=== PATIENT | female | born 1965 | race Caucasian/White ===

== ENCOUNTER 2018-05-15 14:45 | Emergency (ER) | payer OTHER ==
[~2018-05-15] VITALS: Ht 157.5 cm; Wt 45.4 kg
[~2018-05-15 14:45] MED LIST: BENA40TA8 PO; FIORINAL; HYDR-4354 PO; METHIMAZOLE; PROP80TA4 PO
[2018-05-15] MEDS ORDERED: HYDR4TAB4 PO (14:54)
[2018-05-15 15:45] LABS: BASOPHILS % (AUTO) 0.7 % (0.0-2.0); EOSINOPHILS # (AUTO) 0.1 K/uL (0.0-0.7); EOSINOPHILS % (AUTO) 1.4 % (0.0-7.0); HEMATOCRIT 46.7 % (31.2-41.9); HEMOGLOBIN 15.9 g/dL (10.9-14.3); LYMPHOCYTES # (AUTO) 1.6 K/uL (20.0-40.0); MEAN CORPUSCULAR HEMOGLOBIN 29.9 uug (24.7-32.8); MEAN CORPUSCULAR HGB CONC 34 g/dL (32.3-35.6); MEAN CORPUSCULAR VOLUME 88.1 fL (75.5-95.3); MONOCYTES # (AUTO) 0.6 K/uL (2.0-10.0); MONOCYTES % (AUTO) 9.4 % (0.0-11.0); NEUTROPHILS # (AUTO) 4.4 K/uL (1.8-8.9); NEUTROPHILS % (AUTO) 64.5 % (38.5-71.5); PLATELET COUNT (AUTO) 213 K/uL (179-408); WHITE BLOOD COUNT (AUTO) 6.9 K/uL (3.8-11.8)
[2018-05-15 16:04] LABS: BILIRUBIN,DIRECT 0.1 mg/dL (0.0-0.2); BILIRUBIN,TOTAL 0.4 mg/dL (0.2-1.0); CREATININE 0.7 mg/dL (0.6-1.3); POTASSIUM 3.3 mmol/L (3.5-5.1); TOTAL PROTEIN, SERUM 7.3 g/dL (6.4-8.2)
[2018-05-15 16:12] VITALS: BP 141/89
--- NOTE | 2018-05-15 16:12 | NUR ---
Patient discharged to home in stable conditon. Written and verbal after care instructions given. Patient verbalizes understanding of instructions.PT WALKS IN STEADY GAIT. PT WITH FAMILY MEMBERS
== END 2018-05-15 16:14 | disposition home or self-care (01) ==
LOC: ER 14:45
DX: M54.12 Radiculopathy, cervical region (principal); F17.200 Nicotine dependence, unspecified, uncomplicated; Z88.8 Allergy status to other drugs, medicaments and biological substances
CPT/HCPCS: 36415; 70030-TC; 70450; 71045; 85025; 85730; 93005; A4663

== ENCOUNTER 2018-07-27 19:02 | Emergency (ER) | payer BC, OTHER, MEDICAID ==
[~2018-07-27] VITALS: Ht 157.5 cm; Wt 44.5 kg
[~2018-07-27 19:02] MED LIST changes: -FIORINAL; -HYDR-4354 PO; +HYDR4TAB4 PO
[2018-07-27] MEDS ORDERED: ALBUTEROL SULFATE 2.5 MG/3 ML NEBU ONE (19:43)
[2018-07-27] MEDS ORDERED: BENZONATATE 100 MG CAPSULE ONE (19:44)
[2018-07-27] MEDS ORDERED: BENZONATATE 100 MG CAPSULE PO ONE (19:45)
[2018-07-27] MEDS ORDERED: MORPHINE SULFATE 4 MG/1 ML DISP.SYRIN IM ONE (19:45)
[2018-07-27] MEDS ORDERED: ONDANSETRON 4 MG/2 ML VIAL IM ONE (19:45)
[2018-07-27] MEDS ORDERED: ALBUTEROL SULFATE 2.5 MG/3 ML NEBU NEB ONE (19:45)
[2018-07-27] MEDS ORDERED: LIDOCAINE HCL 2% 20 ML VIAL ONE (19:55)
[2018-07-27] MEDS ORDERED: CEFTRIAXONE 1 G VIAL ONE (19:55)
[2018-07-27] MEDS ORDERED: CEFTRIAXONE 1 G VIAL IM ONE (20:00)
[2018-07-27 20:05] VITALS: BP 101/74
--- NOTE | 2018-07-27 20:09 | NUR ---
Patient discharged to home in stable conditon. Written and verbal after care instructions given. Patient verbalizes understanding of instructions. Ambulated from ER with stable gait. all belongings with patient.
== END 2018-07-27 20:09 | disposition home or self-care (01) ==
LOC: ER 19:02
DX: J18.9 Pneumonia, unspecified organism (principal); F17.200 Nicotine dependence, unspecified, uncomplicated; Z88.8 Allergy status to other drugs, medicaments and biological substances; Z79.891 Long term (current) use of opiate analgesic; Z79.899 Other long term (current) drug therapy
CPT/HCPCS: 71045; 94640; 96372; 99283; J0696; J3490; A4663

== ENCOUNTER 2018-09-05 22:27 | Emergency (ER) | payer BC, MEDICAID, OTHER ==
[~2018-09-05] VITALS: Ht 157.5 cm; Wt 38.6 kg
[2018-09-05] MEDS ORDERED: ALBUTEROL SULFATE 2.5 MG/3 ML NEBU NEB ONE (23:30)
[2018-09-05] MEDS ORDERED: IPRATROPIUM BROMIDE 0.5 MG/2.5 ML NEBU NEB ONE (23:30)
[2018-09-05] MEDS ORDERED: BENZONATATE 100 MG CAPSULE PO ONE (23:30)
[2018-09-05] MEDS ORDERED: BENZONATATE 100 MG CAPSULE ONE (23:43)
[2018-09-05] MEDS ORDERED: IPRATROPIUM BROMIDE 0.5 MG/2.5 ML NEBU ONE (23:44)
[2018-09-05] MEDS ORDERED: ALBUTEROL SULFATE 2.5 MG/3 ML NEBU ONE (23:44)
[2018-09-06 02:03] VITALS: BP 104/82
--- NOTE | 2018-09-06 02:03 | NUR ---
Patient discharged to home in stable conditon. Written and verbal after care instructions given. Patient verbalizes understanding of instructions. Patient ambulated out of ER with stable gait.
== END 2018-09-06 02:05 | disposition home or self-care (01) ==
LOC: ER 22:27
DX: J44.1 Chronic obstructive pulmonary disease with (acute) exacerbation (principal); F17.200 Nicotine dependence, unspecified, uncomplicated; Z79.899 Other long term (current) drug therapy; Z88.8 Allergy status to other drugs, medicaments and biological substances
CPT/HCPCS: 71045; A4663; J3590

== ENCOUNTER 2019-06-04 06:46 | Emergency (ER) | payer BC, MEDICAID, OTHER ==
[~2019-06-04] VITALS: Ht 157.5 cm; Wt 45.4 kg
--- NOTE | 2019-06-04 07:20 | NUR ---
Recieved report fron Graduate Studies Dean. Pt is awake, alert and orientedx3. No apparent distress noted, no sob noted.
[2019-06-04] MEDS ORDERED: ALBUTEROL SULFATE 2.5 MG/3 ML NEBU NEB ONE (07:30)
[2019-06-04] MEDS ORDERED: methylPREDNISolone SOD SUCC 125 MG/2 ML VIAL IV ONE (07:30)
[2019-06-04] MEDS ORDERED: KETOROLAC TROMETHAMINE 30 MG INJ IVP ONE (07:30)
--- NOTE | 2019-06-04 07:40 | NUR ---
started heplock on the left FA g#20 LFA as ordered. Pt c/o pain right hip level 8 with movement.
[2019-06-04] MEDS ORDERED: HYDROCODONE/APAP 5-325MG TABLET PO ONE (07:45)
[2019-06-04] MEDS ORDERED: ALBUTEROL SULFATE 2.5 MG/3 ML NEBU ONE (07:46)
[2019-06-04] MEDS ORDERED: ALBUTEROL SULFATE 2.5 MG/ 0.5 ML NEBU ONE (07:46)
[2019-06-04] MEDS ORDERED: KETOROLAC TROMETHAMINE 30 MG INJ ONE (07:49)
[2019-06-04] MEDS ORDERED: methylPREDNISolone SOD SUCC 125 MG/2 ML VIAL ONE (07:50)
[2019-06-04] MEDS ORDERED: HYDROCODONE/APAP 5-325MG TABLET ONE (07:50)
[2019-06-04 07:52] LABS: BASOPHILS # (AUTO) 0.1 K/uL (0.0-8.0); BASOPHILS % (AUTO) 0.8 % (0.0-2.0); EOSINOPHILS # (AUTO) 0.2 K/uL (0.0-0.7); EOSINOPHILS % (AUTO) 2.1 % (0.0-7.0); HEMATOCRIT 43.6 % (31.2-41.9); HEMOGLOBIN 14.3 g/dL (10.9-14.3); LYMPHOCYTES # (AUTO) 1.6 K/uL (20.0-40.0); LYMPHOCYTES % (AUTO) 21.5 % (20.5-51.5); MEAN CORPUSCULAR HEMOGLOBIN 28.5 uug (24.7-32.8); MEAN CORPUSCULAR HGB CONC 33 g/dL (32.3-35.6); MEAN CORPUSCULAR VOLUME 87.1 fL (75.5-95.3); MONOCYTES % (AUTO) 13.7 % (0.0-11.0); NEUTROPHILS # (AUTO) 4.7 K/uL (1.8-8.9); NEUTROPHILS % (AUTO) 61.9 % (38.5-71.5); PLATELET COUNT (AUTO) 237 K/uL (179-408); RED BLOOD CELL COUNT(AUTO) 5.01 MIL/uL (3.63-4.92); WHITE BLOOD COUNT (AUTO) 7.6 K/uL (3.8-11.8)
--- NOTE | 2019-06-04 07:55 | NUR ---
Medicated with Quail 5/325 and Toradol 30mg slow IVP as ordered.
[2019-06-04 08:01] LABS: CREATININE 0.7 mg/dL (0.6-1.3); POTASSIUM 3.9 mmol/L (3.5-5.1)
[2019-06-04 08:13] LABS: BILIRUBIN,DIRECT 0.1 mg/dL (0.0-0.2); BILIRUBIN,TOTAL 0.3 mg/dL (0.2-1.0); TOTAL PROTEIN, SERUM 7.2 g/dL (6.4-8.2)
--- NOTE | 2019-06-04 08:55 | NUR ---
MD discharge pt. DC instruction and prescription given with good understanding. Condition is stable.
[2019-06-04 08:57] VITALS: BP 120/88
--- NOTE | 2019-06-04 09:11 | NUR ---
Pt instructed not to drive but insisted to go home. Stated that she is fully aware of the instruction. DC home ambulatory. Condition is stable.
[2019-06-04 09:49] LABS: *AMPHETAMINE, URINE POSITIVE (NEGATIVE); *BARBITURATE, URINE NEGATIVE (NEGATIVE); *BILIRUBIN,URIN NEGATIVE (NEGATIVE); *BLOOD, URINE TRACE (NEGATIVE); *CANNABINOID, URINE NEGATIVE (NEGATIVE); *CLARITY,URINE CLEAR (CLEAR); *COCCAINE, URINE NEGATIVE (NEGATIVE); *COLOR,URINE YELLOW (YELLOW); *KETONES,URINE NEGATIVE (NEGATIVE); *OPIATE, URINE POSITIVE (NEGATIVE); *PHENCYCLIDINE SCREEN,URINE NEGATIVE (NEGATIVE); *UROBILINOGEN,URINE 0.2 E.U./dl (NORMAL); LEUKOCYTE ESTERASE ,URINE TRACE (NEGATIVE); NITRITE, URINE NEGATIVE (NEGATIVE); UGLUCOSE NEGATIVE (NEGATIVE)
[2019-06-04 09:56] LABS: BACTERIA,URINE FEW /HPF (NONE SEEN); RBC,URINE 0-3 /HPF (0-3); SQUAMOUS EPITHELIAL CELL,UR FEW /HPF (NONE SEEN); WBC,URINE 0-3 /HPF (0-3)
== END 2019-06-04 09:15 | disposition home or self-care (01) ==
LOC: ER 06:51
DX: S16.1XXA Strain of muscle, fascia and tendon at neck level, initial encounter (principal); S39.012A Strain of muscle, fascia and tendon of lower back, initial encounter; J44.1 Chronic obstructive pulmonary disease with (acute) exacerbation; J20.9 Acute bronchitis, unspecified; F17.200 Nicotine dependence, unspecified, uncomplicated; Z88.8 Allergy status to other drugs, medicaments and biological substances; Z79.899 Other long term (current) drug therapy; X58.XXXA Exposure to other specified factors, initial encounter; Y93.89 Activity, other specified; Y92.89 Other specified places as the place of occurrence of the external cause; Y99.8 Other external cause status
CPT/HCPCS: 36415; 71045; 80048; 80076; 80307; 81000; 81001; 83880; 84484; 85025; 93005; 94644; 96374; 96375; 99285; J1885; J2930; 70030-TC; A4663

== ENCOUNTER 2019-07-21 03:12 | Emergency (ER) | payer OTHER, BC ==
[~2019-07-21] VITALS: Ht 157.5 cm; Wt 44.9 kg
[~2019-07-21 03:12] MED LIST changes: -HYDR4TAB4 PO; -PROP80TA4 PO
[2019-07-21 03:38] LABS: *BILIRUBIN,URIN NEGATIVE (NEGATIVE); *BLOOD, URINE 1+ (NEGATIVE); *CLARITY,URINE SLIGHTLY CLOUDY (CLEAR); *COLOR,URINE YELLOW (YELLOW); *KETONES,URINE NEGATIVE (NEGATIVE); LEUKOCYTE ESTERASE ,URINE 1+ (NEGATIVE); NITRITE, URINE POSITIVE (NEGATIVE); PH,URINE 6.5 (5.0-8.0); UGLUCOSE NEGATIVE (NEGATIVE)
--- NOTE | 2019-07-21 03:44 | NUR ---
Dr. Drake at bedside for MSE.
[2019-07-21 03:45] LABS: BACTERIA,URINE MODERATE /HPF (NONE SEEN); SQUAMOUS EPITHELIAL CELL,UR FEW /HPF (NONE SEEN); WBC,URINE 20-50 /HPF (0-3)
[2019-07-21 03:46] LABS: MUCUS,URINE FEW /LPF (0-FEW)
[2019-07-21] MEDS ORDERED: KETOROLAC TROMETHAMINE 60 MG INJ IM ONE ×2 (04:00→04:04)
[2019-07-21] MEDS ORDERED: PROPRANOLOL HCL 10 MG TABLET PO ONE (04:00)
[2019-07-21] MEDS ORDERED: PROPRANOLOL HCL 10 MG TABLET ONE (04:04)
[2019-07-21 04:26] LABS: *AMPHETAMINE, URINE POSITIVE (NEGATIVE); *BARBITURATE, URINE NEGATIVE (NEGATIVE); *CANNABINOID, URINE NEGATIVE (NEGATIVE); *COCCAINE, URINE NEGATIVE (NEGATIVE); *OPIATE, URINE POSITIVE (NEGATIVE); *PHENCYCLIDINE SCREEN,URINE NEGATIVE (NEGATIVE)
[2019-07-21 04:28] LABS: BASOPHILS % (AUTO) 0.4 % (0.0-2.0); EOSINOPHILS # (AUTO) 0.1 K/uL (0.0-0.7); EOSINOPHILS % (AUTO) 0.9 % (0.0-7.0); HEMATOCRIT 46.1 % (31.2-41.9); HEMOGLOBIN 15.2 g/dL (10.9-14.3); LYMPHOCYTES # (AUTO) 2.4 K/uL (20.0-40.0); LYMPHOCYTES % (AUTO) 23.9 % (20.5-51.5); MEAN CORPUSCULAR HEMOGLOBIN 28.4 uug (24.7-32.8); MEAN CORPUSCULAR HGB CONC 33 g/dL (32.3-35.6); MONOCYTES # (AUTO) 1.2 K/uL (2.0-10.0); MONOCYTES % (AUTO) 11.8 % (0.0-11.0); NEUTROPHILS # (AUTO) 6.4 K/uL (1.8-8.9); PLATELET COUNT (AUTO) 206 K/uL (179-408); RED BLOOD CELL COUNT(AUTO) 5.35 MIL/uL (3.63-4.92); WHITE BLOOD COUNT (AUTO) 10.1 K/uL (3.8-11.8)
[2019-07-21] MEDS ORDERED: BENAZEPRIL HCL 10 MG TABLET PO ONE (04:30)
[2019-07-21] MEDS ORDERED: BENAZEPRIL HCL 10 MG TABLET ONE (04:31)
[2019-07-21 04:37] LABS: THYROID STIMULATING HORMONE 0.578 mIU/mL (0.358-3.740)
[2019-07-21 04:50] LABS: CREATININE 0.8 mg/dL (0.6-1.3); POTASSIUM 3.4 mmol/L (3.5-5.1)
--- NOTE | 2019-07-21 05:21 | NUR ---
Patient discharged to home in stable conditon. Written and verbal after care instructions given. Patient verbalizes understanding of instructions. Pt ambulated out of ER with steady gait, no acute signs of distress, VSS, all belongings taken.
[2019-07-21 05:22] VITALS: BP 145/113
== END 2019-07-21 05:22 | disposition home or self-care (01) ==
LOC: ER 03:15
DX: I10 Essential (primary) hypertension (principal); F15.10 Other stimulant abuse, uncomplicated; E05.90 Thyrotoxicosis, unspecified without thyrotoxic crisis or storm; F17.200 Nicotine dependence, unspecified, uncomplicated; Z88.8 Allergy status to other drugs, medicaments and biological substances; Z79.899 Other long term (current) drug therapy
CPT/HCPCS: 36415; 80048; 80307; 81000; 81001; 84443; 85025; 87086; 96372; 99283; J1885; A4663

== ENCOUNTER 2020-03-20 23:56 | Emergency (ER) | payer BC, OTHER ==
[~2020-03-20] VITALS: Ht 157.5 cm; Wt 39.5 kg
[2020-03-21] MEDS ORDERED: VANCOMYCIN 1G/D5W 200 ML PIGGYBACK IV ONE (00:30)
[2020-03-21] MEDS ORDERED: TDAP DIPH,PERTUSS,TET VAC/PF 0.5 ML DISP.SYRIN IM ONE ×2 (00:30→00:38)
[2020-03-21] MEDS ORDERED: VANCOMYCIN IV 200 ML ONE (00:38)
[2020-03-21] MEDS ORDERED: KETOROLAC TROMETHAMINE 30 MG INJ ONE (00:57)
[2020-03-21] MEDS ORDERED: KETOROLAC TROMETHAMINE 30 MG INJ IVP ONE (02:00)
[2020-03-21 02:32] VITALS: BP 109/83
== END 2020-03-21 02:33 | disposition home or self-care (01) ==
LOC: ER 23:58
DX: L03.113 Cellulitis of right upper limb (principal); S61.411A Laceration without foreign body of right hand, initial encounter; W25.XXXA Contact with sharp glass, initial encounter; Y93.G1 Activity, food preparation and clean up; Y92.89 Other specified places as the place of occurrence of the external cause; F17.210 Nicotine dependence, cigarettes, uncomplicated; Z85.41 Personal history of malignant neoplasm of cervix uteri; E03.9 Hypothyroidism, unspecified; Z88.8 Allergy status to other drugs, medicaments and biological substances
CPT/HCPCS: 73130; 90471; 90715; 96365; 96375; 99284; 99406; J1885; J3370; A4663

== ENCOUNTER 2020-03-23 02:01 | Emergency (ER) | payer OTHER ==
[~2020-03-23] VITALS: Ht 157.5 cm; Wt 39.5 kg
[2020-03-23] MEDS ORDERED: CEPH-570 PO (02:08)
[2020-03-23] MEDS ORDERED: SULF1TAB48 PO (02:08)
--- NOTE | 2020-03-23 02:13 | NUR ---
at bedside for assessment
--- NOTE | 2020-03-23 02:26 | NUR ---
Patient discharged to home in stable condition. Ambulated with steady gait. Took all belongings, no signs of distress, Rx given. Hand laceration covered with bandaid per MD orders. Written and verbal after care instructions given. Patient verbalizes understanding of instructions. Stressed follow up or return to ER for worsening s/s.
[2020-03-23 02:29] VITALS: BP 145/89
== END 2020-03-23 02:30 | disposition home or self-care (01) ==
LOC: ER 02:04
DX: S61.411D Laceration without foreign body of right hand, subsequent encounter (principal); W25.XXXD Contact with sharp glass, subsequent encounter; E05.90 Thyrotoxicosis, unspecified without thyrotoxic crisis or storm; F17.200 Nicotine dependence, unspecified, uncomplicated
CPT/HCPCS: A4663

== ENCOUNTER 2020-04-22 01:18 | Emergency (ER) | payer OTHER ==
[~2020-04-22] VITALS: Ht 157.5 cm; Wt 39.5 kg
[~2020-04-22 01:18] MED LIST changes: +CEPH-570 PO; +SULF1TAB48 PO
[2020-04-22] MEDS ORDERED: AMOXicillin 250 MG CAPSULE PO ONE (01:45)
[2020-04-22] MEDS ORDERED: AMOXicillin 250 MG CAPSULE ONE (01:45)
[2020-04-22 01:46] VITALS: BP 155/108
--- NOTE | 2020-04-22 01:46 | NUR ---
Patient discharged to home in stable condition. Written and verbal after care instructions given. Patient verbalizes understanding of instructions. Stressed follow up or return to ER for worsening s/s.
== END 2020-04-22 01:47 | disposition home or self-care (01) ==
LOC: ER 01:22
DX: H92.02 Otalgia, left ear (principal); E05.90 Thyrotoxicosis, unspecified without thyrotoxic crisis or storm; Z85.41 Personal history of malignant neoplasm of cervix uteri; R03.0 Elevated blood-pressure reading, without diagnosis of hypertension
CPT/HCPCS: A4663

== ENCOUNTER 2021-01-04 05:03 | Emergency (ER) | payer BC ==
[~2021-01-04] VITALS: Ht 162.6 cm; Wt 45.4 kg
--- NOTE | 2021-01-04 05:19 | NUR ---
Pt ambulated to ER with c/o dysuria and frequent urination x3 days PL:02/15, no SOB or pat breathing. Afebrile.
--- NOTE | 2021-01-04 05:25 | NUR ---
Dr. Andersen at bedside, MSE in progress.
[2021-01-04 05:29] LABS: *BILIRUBIN,URIN NEGATIVE (NEGATIVE); *BLOOD, URINE 2+ (NEGATIVE); *CLARITY,URINE CLOUDY (CLEAR); *COLOR,URINE YELLOW (YELLOW); *KETONES,URINE NEGATIVE (NEGATIVE); *UROBILINOGEN,URINE 0.2 E.U./dl (NORMAL); LEUKOCYTE ESTERASE ,URINE 2+ (NEGATIVE); NITRITE, URINE NEGATIVE (NEGATIVE); UGLUCOSE NEGATIVE (NEGATIVE)
[2021-01-04 05:39] LABS: BACTERIA,URINE MODERATE /HPF (NONE SEEN); RBC,URINE 50-80 /HPF (0-3); WBC,URINE 80-100 /HPF (0-3)
[2021-01-04 05:40] LABS: SQUAMOUS EPITHELIAL CELL,UR MANY /HPF (NONE SEEN)
[2021-01-04] MEDS ORDERED: CEFTRIAXONE 1 G in IV DEXTROSE 5% 50 ML IV ONE (06:00)
[2021-01-04] MEDS ORDERED: OXYCODONE/APAP 5-325 MG TABLET PO ONE (06:00)
[2021-01-04] MEDS ORDERED: OXYCODONE/APAP 5-325 MG TABLET ONE (06:02)
[2021-01-04] MEDS ORDERED: CEFTRIAXONE /D5W 50ML IVPB **ER PYXIS IV ONE (06:02)
[2021-01-04 06:11] LABS: HEMATOCRIT 43.1 % (31.2-41.9); MEAN CORPUSCULAR VOLUME 89.1 fL (75.5-95.3); PLATELET COUNT (AUTO) 195 K/uL (179-408)
[2021-01-04 06:15] LABS: CREATININE 0.5 mg/dL (0.6-1.3); POTASSIUM 3.8 mmol/L (3.5-5.1)
[2021-01-04] MEDS ORDERED: OXYC-128 PO (06:41)
[2021-01-04] MEDS ORDERED: CIPR-262 PO (06:41)
[2021-01-04] MEDS ORDERED: PHEN-704 PO (06:41)
--- NOTE | 2021-01-04 06:49 | NUR ---
Patient discharged to home in stable condition. A/O x4, no SOB or labored breathing, afebrile. Denies pain/discomfort. Written and verbal after care instructions given. Patient verbalizes understanding of instructions. Stressed follow up or return to ER for worsening s/s. Accompanied by significant other.
[2021-01-04 06:50] VITALS: BP 134/73
== END 2021-01-04 06:51 | disposition home or self-care (01) ==
LOC: ER 05:06
DX: N39.0 Urinary tract infection, site not specified (principal); Z85.41 Personal history of malignant neoplasm of cervix uteri; E05.90 Thyrotoxicosis, unspecified without thyrotoxic crisis or storm
CPT/HCPCS: 36415; 80048; 81001; 85025; 87040; 87086; 96365; 99284; J0696; A4663

== ENCOUNTER 2021-10-16 14:42 | Emergency (ER) | payer BC ==
[~2021-10-16] VITALS: Ht 160 cm; Wt 38.6 kg
[~2021-10-16 14:42] MED LIST changes: +CIPR-262 PO; +OXYC-128 PO; +PHEN-704 PO
--- NOTE | 2021-10-16 14:55 | NUR ---
Dr conteh at the bedside for MSE.
[2021-10-16 15:10] LABS: *BILIRUBIN,URIN NEGATIVE (NEGATIVE); *BLOOD, URINE 3+ (NEGATIVE); *CLARITY,URINE CLOUDY (CLEAR); *COLOR,URINE DARK YELLOW (YELLOW); *KETONES,URINE TRACE (NEGATIVE); *UROBILINOGEN,URINE 0.2 E.U./dl (NORMAL); LEUKOCYTE ESTERASE ,URINE 1+ (NEGATIVE); NITRITE, URINE NEGATIVE (NEGATIVE); PH,URINE 6.5 (5.0-8.0); UGLUCOSE NEGATIVE (NEGATIVE)
[2021-10-16 15:14] LABS: *URINE HCG, QUAL NEG (NEGATIVE)
[2021-10-16] MEDS ORDERED: IBUPROFEN 600 MG TABLET PO ONE (15:15)
[2021-10-16] MEDS ORDERED: BENAZEPRIL HCL 10 MG TABLET PO ONE (15:15)
[2021-10-16] MEDS ORDERED: IBUPROFEN 600 MG TABLET ONE (15:20)
[2021-10-16] MEDS ORDERED: BENAZEPRIL HCL 10 MG TABLET ONE (15:20)
[2021-10-16] MEDS ORDERED: ACETAMINOPHEN/CODEINE 300-30 MG TABLET ONE (15:25)
[2021-10-16] MEDS ORDERED: ACETAMINOPHEN/CODEINE 300-30 MG TABLET PO ONE (15:30)
[2021-10-16] MEDS ORDERED: TAMS-3 PO ×2 (16:12→16:24)
[2021-10-16] MEDS ORDERED: CEPH500C2 PO (16:12)
[2021-10-16] MEDS ORDERED: BENA40TA8 PO (16:24)
[2021-10-16] MEDS ORDERED: HYDR-3980 PO (16:24)
[2021-10-16] MEDS ORDERED: PROP40TA7 PO (16:29)
[2021-10-16 16:57] VITALS: BP 139/93
[2021-10-16 19:16] LABS: BACTERIA,URINE FEW /HPF (NONE SEEN); RBC,URINE TNTC /HPF (0-3); SQUAMOUS EPITHELIAL CELL,UR FEW /HPF (NONE SEEN)
--- NOTE | 2021-10-19 08:29 | NUR ---
left VM to call. want to tell her to followup with urology
== END 2021-10-16 16:57 | disposition home or self-care (01) ==
LOC: ER 14:59
DX: R31.0 Gross hematuria (principal); R10.9 Unspecified abdominal pain; N20.0 Calculus of kidney; F17.210 Nicotine dependence, cigarettes, uncomplicated; R03.0 Elevated blood-pressure reading, without diagnosis of hypertension; J44.9 Chronic obstructive pulmonary disease, unspecified; E05.90 Thyrotoxicosis, unspecified without thyrotoxic crisis or storm; Z79.899 Other long term (current) drug therapy; Z87.01 Personal history of pneumonia (recurrent); Z85.41 Personal history of malignant neoplasm of cervix uteri
CPT/HCPCS: 76770; 84703; A4663

== ENCOUNTER 2021-11-11 20:58 | Inpatient (IN) | payer BC ==
[~2021-11-11] VITALS: Ht 157.5 cm; Wt 40.4 kg
[~2021-11-11 20:58] MED LIST changes: +HYDR-3980 PO; +PROP40TA7 PO; +TAMS-3 PO
--- NOTE | 2021-11-11 21:40 | NUR ---
Dr Rogers at bedside, MSE in progress.
[2021-11-11 21:42] LABS: *BILIRUBIN,URIN NEGATIVE (NEGATIVE); *BLOOD, URINE 2+ (NEGATIVE); *CLARITY,URINE CLEAR (CLEAR); *COLOR,URINE YELLOW (YELLOW); *KETONES,URINE NEGATIVE (NEGATIVE); LEUKOCYTE ESTERASE ,URINE 3+ (NEGATIVE); NITRITE, URINE POSITIVE (NEGATIVE); UGLUCOSE TRACE (NEGATIVE)
[2021-11-11 21:43] LABS: *URINE HCG, QUAL NEGATIVE (NEGATIVE)
[2021-11-11] MEDS ORDERED: KETOROLAC TROMETHAMINE 30 MG INJ IVP ONE (21:45)
[2021-11-11] MEDS ORDERED: HYDROMORPHONE 1 MG/1 ML DISP.SYRIN IV ONE (21:45)
[2021-11-11] MEDS ORDERED: ONDANSETRON 4 MG/2 ML VIAL IV ONE (21:45)
[2021-11-11] MEDS ORDERED: KETOROLAC TROMETHAMINE 30 MG INJ ONE (21:48)
[2021-11-11] MEDS ORDERED: HYDROMORPHONE 1 MG/1 ML DISP.SYRIN ONE (21:48)
[2021-11-11] MEDS ORDERED: ONDANSETRON 4 MG/2 ML VIAL ONE (21:48)
[2021-11-11 22:03] LABS: HEMATOCRIT 43.7 % (31.2-41.9); MEAN CORPUSCULAR HEMOGLOBIN 29.2 uug (24.7-32.8); MEAN CORPUSCULAR VOLUME 86.8 fL (75.5-95.3); PLATELET COUNT (AUTO) 195 K/uL (179-408)
[2021-11-11] MEDS ORDERED: IOHEXOL 300MG/ML 100 ML INFUS..BTL ONE (22:05)
[2021-11-11] MEDS ORDERED: SWABABLE VALVE TRANSFER SET EA MC ONE (22:05)
[2021-11-11] MEDS ORDERED: IV NORMAL SALINE 250 ML IV ONE (22:05)
[2021-11-11 22:11] LABS: CREATININE 0.8 mg/dL (0.6-1.3); POTASSIUM 4.2 mmol/L (3.5-5.1)
[2021-11-11 22:22] LABS: BILIRUBIN,DIRECT 0.1 mg/dL (0.0-0.2); BILIRUBIN,TOTAL 0.5 mg/dL (0.2-1.0); TOTAL PROTEIN, SERUM 7.1 g/dL (6.4-8.2)
[2021-11-11] MEDS ORDERED: CEFTRIAXONE 1 G in IV DEXTROSE 5% 50 ML IV ONE (22:30)
[2021-11-11] MEDS ORDERED: CEFTRIAXONE /D5W 50ML IVPB **ER PYXIS IV ONE (22:36)
--- NOTE | 2021-11-11 22:38 | NUR ---
pt returned from CT
[2021-11-11 22:44] LABS: WBC,URINE 20-50 /HPF (0-3)
[2021-11-11 22:45] LABS: BACTERIA,URINE FEW /HPF (NONE SEEN); SQUAMOUS EPITHELIAL CELL,UR FEW /HPF (NONE SEEN)
[2021-11-11] MEDS ORDERED: REMEDY ESSENTIAL ZINC PASTE 113 GM TP PRN (23:30)
[2021-11-11] MEDS ORDERED: HYDROCODONE/APAP 5-325MG TABLET PO PRN (23:30)
[2021-11-11] MEDS ORDERED: MAGNESIUM HYDROXIDE 30 ML LIQUID UDC PO PRN (23:30)
[2021-11-11] MEDS ORDERED: ONDANSETRON 4 MG/2 ML VIAL IV PRN (23:30)
[2021-11-11] MEDS ORDERED: ACETAMINOPHEN 325 MG TABLET PO PRN (23:30)
[2021-11-11] MEDS ORDERED: MORPHINE SULFATE 2 MG/1 ML DISP.SYRIN IV PRN (23:30)
--- NOTE | 2021-11-11 23:59 | NUR ---
report given to Georgette OROZCOspine surgeon.
--- NOTE | 2021-11-12 01:18 | NUR ---
pt taken to room 320 via [facility]ney with all belongings.
[2021-11-12 01:30] VITALS: BP 125/83
[2021-11-12] MEDS: IV NS 1000 ML 1,000 ML IV PRN ×2 (01:43→17:52)
--- NOTE | 2021-11-12 02:15 | NUR ---
Received a 56 yr old female admitted for right lower quadrant pain diagnosed with kidney stones. AAOx4 Ambulatory. VSS BP 125/83 HR 78 Resp20 Temp 98.6 pulse ox 94% RA Hx of COPD, Chronic back pain, Cellulitis. Needs attended. On pain management. Denies any pain at this time. Continent of bowel and bladder. last BM 11/11. Right forearm heplock flushed and patent, IVF's infusing @75cc/hr. No acute distress noted. Will monitor patient.
[2021-11-12 06:45] LABS: HEMATOCRIT 40.1 % (31.2-41.9); MEAN CORPUSCULAR HEMOGLOBIN 29.6 uug (24.7-32.8); MEAN CORPUSCULAR VOLUME 87.7 fL (75.5-95.3); PLATELET COUNT (AUTO) 177 K/uL (179-408)
[2021-11-12 06:56] LABS: BILIRUBIN,DIRECT 0.1 mg/dL (0.0-0.2); BILIRUBIN,TOTAL 0.6 mg/dL (0.2-1.0)
[2021-11-12 06:58] LABS: BILIRUBIN,DIRECT 0.1 mg/dL (0.0-0.2); BILIRUBIN,TOTAL 0.6 mg/dL (0.2-1.0); CREATININE 0.9 mg/dL (0.6-1.3); MAGNESIUM 2.1 mg/dL (1.8-2.4); PHOSPHOROUS 3.7 mg/dL (2.5-4.9); POTASSIUM 4.1 mmol/L (3.5-5.1); TOTAL PROTEIN, SERUM 6.3 g/dL (6.4-8.2)
[2021-11-12 07:10] LABS: THYROID STIMULATING HORMONE 0.132 mIU/mL (0.358-3.740)
--- NOTE | 2021-11-12 08:51 | NUR ---
PATIENT WAS MEDICATED WITH MORPHINE ORDERED AND SHE STATED THAT HER PAIN IS NOT BEING MANAGED DR BOONE NOTIFIED WITH NEW ORDERS AND NOTED.
[2021-11-12] MEDS ORDERED: BENAZEPRIL HCL 10 MG TABLET PO SCH (09:00)
[2021-11-12] MEDS ORDERED: PANTOPRAZOLE SODIUM 40 MG VIAL IV SCH (09:00)
[2021-11-12] MEDS: PROPRANOLOL HCL 40 MG TABLET PO SCH ×2 (09:12→17:00)
[2021-11-12] MEDS: HYDROMORPHONE 1 MG/1 ML DISP.SYRIN IV PRN ×3 (09:12→17:00)
[2021-11-12] MEDS ORDERED: TAMS-3 PO (11:02)
[2021-11-12 12:00] VITALS: BP 122/90
[2021-11-12] MEDS: TAMSULOSIN HCL 0.4 MG CAP.SR.24H PO SCH ×2 (13:01→20:51)
--- NOTE | 2021-11-12 14:00 | NUR ---
POOR VENOUS ASSESS MD AWARE WITH ORDER TO INSERT A MID LINE INSERTED TO HER LEFT UPPER ARM WITH ONE ATTEMPT AND TOLERATED WELL
--- NOTE | 2021-11-12 14:26 | NUR ---
C/O HAS NASAL CONGESTION AND USUALLY TAKES AFRIN NASAL SPRAY REQUESTING FOR IT AND HAS NO ORDER DR BOONE NOTIFIED AWAITING FOR ORDERS PATIENT AWARE THAT WE ARE AWAITING FOR ORDERS AT THIS TIME
--- NOTE | 2021-11-12 15:30 | NUR ---
PATIENT INSTRUCTED AND EDUCATED ON URINE STRAINING STRAINED AND A HAT PROVIDDED AND DEMONSTRATION AT THIS TIME.
[2021-11-12] MEDS ORDERED: OXYMETAZOLINE NASAL 0.05% 15 ML SPRAY NS PRN (15:45)
[2021-11-12 16:00] VITALS: BP 146/92
[2021-11-12] MEDS ORDERED: LORAZEPAM 2 MG/1 ML VIAL IV PRN (17:00)
[2021-11-12] MEDS ORDERED: KETOROLAC TROMETHAMINE 15 MG INJ IVP PRN (17:00)
[2021-11-12] MEDS ORDERED: NICOTINE 21 MG/24HR PATCH TD SCH (17:00)
--- NOTE | 2021-11-12 17:54 | NUR ---
SEEN BY DR BOONE WITH NEW ORDERS MEDICATED WITH ATIVAN THIS TIME PATIENT C/O VERY ANXIOUS WILL CONTINUE TO OBSERVE.
--- NOTE | 2021-11-12 18:49 | NUR ---
CONTINUE TO STRIAN URINE WITH NO STONES SEEN AT THIS TIME.
[2021-11-12 20:22] VITALS: BP 123/72
[2021-11-12] MEDS ORDERED: CEFTRIAXONE 1 G in IV DEXTROSE 5% 50 ML IV SCH (21:00)
--- NOTE | 2021-11-12 21:00 | NUR ---
PATIENT CALLED AND SHE SAID SHES NOT STAYING HERE FOR TONIGHT AND SHES GOING HOME AGAINST MEDICAL ADVISED . SPOKED WITH PATIENT BUT THE MORE YOU CONVINCED HER TO STAY SHE GETS AGGRESSIVE AND VERY AGITATED. PATIENT WANTS HER IV- HEPLOCK AND MIDLINE DISCONTINUE -D/C HEPLOCK RIGHT FOREARM AND LEFT UPPER ARM MIDLINE ,COVER WITH GAUZE AND SECURE WITH TAPE .NO S/S OF BLEEDING NOTED.
--- NOTE | 2021-11-12 21:05 | NUR ---
PATIENT VERY RESTLESS AND AGITATED, SCREAMING SHES GOING HOME AND SHE DONT WANT TO STAY HERE IN THE HOSPITAL . EXPLAINED TO PATIENT THAT ITS VERY LATE NOW AND DARK OUTSIDE AND ITS NOT SAFE .SHE SAID SHE ALREADY CALLED SOMEONE TO PICK HER UP .INSISTED SHES NOT STAYING.
--- NOTE | 2021-11-12 21:11 | NUR ---
PATIENT SIGNED AMA, GIVEN PATIENT BELONGINGS AND CONTRABANDS ADVISED PATIENT TO COME BACK IN AM TO PHARMACY SINCE SHE HAS HER HOME MEDICATION NEEDED TO BE STEWARD RACETRACK.HOME MEDICATION PHARMACY FORM GIVEN TO PATIENT SINCE THEY ARE CLOSED NOW . PATIENT VERBALIZED UNDERSTANDING .
--- NOTE | 2021-11-12 21:15 | NUR ---
PATIENT WENT HOME VIA WHEELCHAIR ESCORTED BY INVESTIGATIONS CHIEF WITH ALL HER BELONGINGS .
--- NOTE | 2021-11-12 21:25 | NUR ---
CALLED AND NOTIFIED PIERRE WLOF AND MADE AWARE .
--- NOTE | 2021-11-12 21:26 | NUR ---
NURSING APPLICATION SUPPORT ENGINEER Griselda informed of the pt going home against medical advice.
--- NOTE | 2021-11-12 21:30 | NUR ---
PER REVERSE ENGINEER PATIENT WILL BE WELT RANDER BY TISHA AND ALREADY ON HIS WAY .
[2021-11-13] MEDS ORDERED: BENAZEPRIL HCL 20 MG TABLET PO SCH (09:00)
== END 2021-11-12 21:11 | disposition left against medical advice (07) | DRG 690 ==
LOC: ER 21:03 → MEDSURG3 11-12 00:32
PROVIDERS: ADMIT Internal Medicine; ATTEND Internal Medicine
PROC: 05H633Z Insertion of Infusion Device into Left Subclavian Vein, Percutaneous Approach (ICD-10-PCS; principal; 2021-11-12)
PROC: B547ZZA Ultrasonography of Left Subclavian Vein, Guidance (ICD-10-PCS; 2021-11-12)
DX: N13.6 Pyonephrosis (principal); Z68.1 Body mass index [BMI] 19.9 or less, adult; E44.0 Moderate protein-calorie malnutrition; E05.90 Thyrotoxicosis, unspecified without thyrotoxic crisis or storm; F41.9 Anxiety disorder, unspecified; I10 Essential (primary) hypertension; I25.10 Atherosclerotic heart disease of native coronary artery without angina pectoris; J44.9 Chronic obstructive pulmonary disease, unspecified; Z20.822 Contact with and (suspected) exposure to COVID-19; Z85.41 Personal history of malignant neoplasm of cervix uteri; R62.7 Adult failure to thrive; Z87.442 Personal history of urinary calculi; K57.30 Diverticulosis of large intestine without perforation or abscess without bleeding; K83.8 Other specified diseases of biliary tract; Z87.891 Personal history of nicotine dependence
CPT/HCPCS: 36415; 83690; 83735; 84100; 84443; 84703; 85025; 85730; 87086; A4663; C9113; G0378; J0696; J1170; J1885; J2060; J2270; J2405; J7040; Q9967